=== PATIENT | male | born 1985 | race Caucasian/White ===

== ENCOUNTER → 2024-12-07 07:57 | Outpatient (REF) | payer OTHER, SELFPAY | LOC: EMG 07:57 | PROVIDERS: ATTENDING PHYSICIAN Orthopaedic Surgery; FAMILY PHYSICIAN Physician Assistant | DX: G56.00 Carpal tunnel syndrome, unspecified upper limb (principal); R20.0 Anesthesia of skin | CPT/HCPCS: 95886; 95909 ==